=== PATIENT | female | born 1950 | race Caucasian/White ===

== ENCOUNTER 2019-11-20 11:44 | Outpatient (RCR) | payer MEDICARE, SELFPAY | END 2019-11-20 23:59 | disposition home or self-care (01) | LOC: NS 11:44 | PROVIDERS: PCP Student in an Organized Health Care Education/Training Program; Visit Provider Physician Assistant | DX: Z71.3 Dietary counseling and surveillance (principal); E11.9 Type 2 diabetes mellitus without complications; E66.8 Other obesity; Z68.42 Body mass index [BMI] 45.0-49.9, adult | CPT/HCPCS: 97802 ==

== ENCOUNTER 2020-01-07 08:21 | Day surgery (SDC) | payer MEDICARE, SELFPAY ==
[2020-01-07 09:04] VITALS: BP 150/70; PULSE 76; RESP 16; TEMP 36.8; O2SAT 96; BMI 49.9
[2020-01-07] MEDS: Lactated Ringers 1,000 ML 100 ML IV (09:15)
--- NOTE | 2020-01-07 09:15 | RAD_ITS ---
PROCEDURE: Caudal block. DATE OF EXAMINATION: January 07, 2020. INDICATION: Female, 69 years old. Chronic back pain. FLUOROSCOPY TIME (if supplied): (8.9 seconds) minutes/seconds Intraoperative imaging provided for caudal block. RAD/Fluoro Guided Needle Placement IMPRESSION: Intraoperative imaging provided for caudal block. Electronically Signed: Tee Morneo, at 13:25 EDT , Service support ,
[2020-01-07 10:00] LABS: Bedside Glucose 104 mg/dL (70-110)
[2020-01-07] MEDS: Bupivacaine 0.25% 30 ML Vial (10:24)
[2020-01-07] MEDS: MethylPREDNISolone Acetate 80 MG/ML Vial (10:24)
[2020-01-07] MEDS: 0.9% Normal Saline (Pres. free 10 ML Vial (10:24)
--- NOTE | 2020-01-07 10:33 | PCM.OPRPT ---
Report of Operation Date of Procedure: 01/07/20 Description of Surgical Findings:: PREOPERATIVE DIAGNOSIS: Lumbosacral radiculopathy, lumbosacral degenerative disc disease, lumbosacral spinal stenosis POSTOPERATIVE DIAGNOSIS: Lumbosacral radiculopathy, lumbosacral degenerative disc disease, lumbosacral spinal stenosis PROCEDURE PERFORMED: Diagnostic/therapeutic caudal epidural steroid injection. ANESTHESIA: MAC. BLOOD LOSS: Minimal. COMPLICATIONS: None. DESCRIPTION OF PROCEDURE: History and physical of today was reviewed. Risks and benefits of the procedure were explained. The patient understood and agreed to proceed. Informed consent was obtained. IV inserted per routine protocol. The patient was taken to the operating room and placed in the prone position with a pillow positioned underneath the abdomen. The lower back and tailbone area was prepped and draped in a sterile fashion using iodine x3. Under fluoroscopy guidance on a lateral view, the caudal space was identified. The skin and subcutaneous tissue was anesthetized with approximately 3 mL of 1% lidocaine using a 25-gauge regular needle. Under direct visualization with fluoroscopy, using a 22-gauge 3-1/2-inch spinal needle, the needle was advanced via the skin through the sacral hiatus. The tip of the needle was passed through the sacrococcygeal ligament and advanced to approximately S4 area. After negative aspiration of blood or CSF, a total of 3 mL of contrast was injected to confirm correct placement of the needle as well as cephalad spread. The spread was followed to approximately L5 area. After confirmation on AP as well as lateral view and repeated negative aspiration, a total of 15 mL of preservative-free 0.125% Marcaine with 80 mg of Depo-Medrol was injected easily. The needle was then removed intact. The patient experienced no sign or symptoms of intrathecal or intravascular injection. The patient experienced no paresthesia. The procedure was completed without any apparent difficulty or any complications. The patient appeared to tolerate it well. ASSESSMENT AND PLAN: This is a 69-year-old female with lumbosacral radiculopathy, lumbosacral degenerative disc disease, lumbosacral spinal stenosis status post Diagnostic/therapeutic caudal epidural steroid injection, patient will continue her current medications, patient will follow approximately 2 weeks for reevaluation.
[2020-01-07 10:35] VITALS: BP 141/69; BP 150/70; PULSE 78; RESP 18; TEMP 36.5; O2SAT 100
[2020-01-07 10:40] VITALS: BP 150/70; BP 157/77; PULSE 81; RESP 18; O2SAT 100
[2020-01-07 10:45] VITALS: BP 150/70; BP 158/72; PULSE 80; RESP 18; O2SAT 98
[2020-01-07 10:50] VITALS: BP 150/70; BP 168/73; RESP 18; TEMP 36.9; O2SAT 100
[2020-01-07 11:11] VITALS: BP 150/70
== END 2020-01-07 11:27 | disposition home or self-care (01) ==
LOC: SDC 08:24 → AC 08:24
PROVIDERS: PCP Student in an Organized Health Care Education/Training Program; Referring Provider Student in an Organized Health Care Education/Training Program; Visit Provider Anesthesiology Pain Medicine
PROC: 3E0S3BZ Introduction of Anesthetic Agent into Epidural Space, Percutaneous Approach (ICD-10-PCS; CPT 62282; principal; 2020-01-07 09:25)
DX: M51.17 Intervertebral disc disorders with radiculopathy, lumbosacral region (principal); M47.27 Other spondylosis with radiculopathy, lumbosacral region; M46.96 Unspecified inflammatory spondylopathy, lumbar region; M41.86 Other forms of scoliosis, lumbar region; M48.07 Spinal stenosis, lumbosacral region; G89.29 Other chronic pain; E11.9 Type 2 diabetes mellitus without complications; M79.7 Fibromyalgia; J45.909 Unspecified asthma, uncomplicated; M81.0 Age-related osteoporosis without current pathological fracture; G47.33 Obstructive sleep apnea (adult) (pediatric); K21.9 Gastro-esophageal reflux disease without esophagitis; Z79.899 Other long term (current) drug therapy
CPT/HCPCS: 62323; 64483; 77002; 82962; J7120; J3490

== ENCOUNTER → 2020-02-18 09:26 | Outpatient (CLI) | payer MEDICARE, SELFPAY ==
--- NOTE | 2020-02-18 | ASPOS_PTH ---
PATIENT: AUSTIN BARROS LOC: [facility] U#:[id number] AGE/SX: 75/F ROOM: RE02/18/[address]: Dr. Kartik Garrido MD : 1950 BED: DIS: SPEC #: [id number] RECD: 02/18/20 10:41 STATUS: SARAH REVickie #: [id number] MARION: 02/18/20 00:[address]: Kartik Garrido DEPT: CYTOLOGY RECD BY: Raheel Quiñones ENTERED: 02/18/20 10:41 SP TYPE: ASP HERE OTHR DR: Dr. Padmini Rosa MD Tissues: Parotid gland, NOS Procedures: Surgery Specimen Level IV Cytology Other Fine Needle Asp on Site HEADER OPERATION: Fine needle aspiration right parotid mass PRE-OP DIAGNOSIS: Right parotid mass TISSUE SUBMITTED: Right parotid mass DIAGNOSIS CYTOLOGY Fine needle aspiration, right parotid mass (smears and cell block): Consistent with pleomorphic adenoma. AM:efraín 02/19/20 COMMENT The specimen is evaluated at the time of FNA by Dr. Aggarwal. Immediate Evaluation = Mature adipose tissue and benign salivary gland tissue. Case has been reviewed in consultation with Dr. Kirkpatrick who concurs with the above diagnosis. IDC:SJ CYTOLOGY STUDY Slides are reviewed. CYTOLOGY GROSS Received is 0.2 ml of clear yellow material labeled with the patient's name, and designated right parotid. Four imprints and one paps are made from the submitted fluid and the rest is added to CytoLyt for cell block preparation. Submitted for cytology study. / rg 02/18/20 TC:1 CPT: 15856, 36462, 99640, 27506
== END ==
PROVIDERS: PCP Student in an Organized Health Care Education/Training Program; Referring Provider Otolaryngology; Visit Provider Otolaryngology
DX: K11.8 Other diseases of salivary glands (principal)
CPT/HCPCS: 10021; 88161; 88305

== ENCOUNTER 2020-06-09 05:48 | Day surgery (SDC) | payer MEDICARE, SELFPAY ==
--- NOTE | 2020-06-03 10:33 | EKG12_ITS ---
Test Reason : PRE OP Blood Pressure : / mmHG Vent. Rate : 078 BPM Atrial Rate : 078 BPM P-R Int : 142 ms QRS Dur : 082 ms QT Int : 376 ms P-R-T Axes : 068 -02 023 degrees QTc Int : 428 ms Normal sinus rhythm with sinus arrhythmia Nonspecific ST abnormality Abnormal ECG Confirmed by ANAMIKA MONTES, MARIA LUISA ([id number]), website/blog editor YAZ CASEY ([id number]) on 06/04/2020 8:46:18 AM Referred By: Kartik Garrido Confirmed By:MARIA LUISA WILLSON MD
[2020-06-03 11:35] LABS: Hematocrit 42.1 % (37-47); Hemoglobin 12.9 g/dL (12.0-15.0); Mean Corp Hgb Conc 30.6 g/dL (32-36); Mean Corpuscular Hgb 29.2 pg (27.0-32.0); Mean Corpuscular Volume 95.2 fL (81-99); Platelet Count 298 K/mm3 (150-450); RBC Distribution Width CV 14.1 % (11.6-14.6); RBC Distribution Width SD 49.1 fl (35.1-43.9); Red Blood Count 4.42 M/mm3 (4.2-5.4)
[2020-06-03 11:43] LABS: International Normalized Ratio 1.1; Partial Thromboplast Time 30.4 Seconds (24.1-36.2); Prothrombin Time (Protime)PT. 13.4 SECONDS (11.7-14.9)
[2020-06-03 11:52] LABS: Hemoglobin A1c 6.2 % (3.8-5.6)
[2020-06-03 12:07] LABS: Anion Gap 4 (5-15); BUN 14 mg/dL (7-18); BUN/Creat Ratio 20.4 RATIO (10-20); Calcium,Total 9.5 mg/dL (8.5-10.1); Chloride 104 mmol/L (98-107); Creatinine, Serum 0.69 mg/dL (0.55-1.02); EST Glomerular Filtration Rate 90 mL/min (>60); Est Glom Filt Rate - Afr Amer 109 mL/min (>60); Glucose 100 mg/dL (74-106); Potassium 4.1 mmol/L (3.5-5.1); Sodium Level 139 mmol/L (136-145)
[2020-06-09] VITALS (9 sets, daily range): BP systolic 131–188; BP diastolic 63–91; PULSE 80–94; RESP 16–18; TEMP 36.1–36.7; O2SAT 92–100; BMI 49.3
--- NOTE | 2020-06-09 | PAR_PTH ---
PATIENT: AUSTIN BARROS LOC: [facility] [place] U#:[id number] AGE/SX: 70/F ROOM: RE06/09/[address]: Dr. Kartik Garrido MD : 1950 BED: DIS: 06/09/2020 SPEC #: [id number] RECD: 06/09/20 13:36 STATUS: SARAH MOLLY #: [id number] MARION: 06/09/20 00:[address]: Kartik Garrido DEPT: SURGICAL PATHOLOGY RECD BY: Vaughn Rey ENTERED: 06/09/20 13:36 SP TYPE: PAROTID OTHR DR: Dr. Padmini Rosa MD Tissues: Parotid gland, NOS Procedures: Surgery Specimen Level V HEADER OPERATION: Superficial parotidectomy, superficial muscular aponeurotic PRE-OP DIAGNOSIS: Right parotid mass TISSUE SUBMITTED: Right parotid mass MICROSCOPIC DIAGNOSIS Right parotid mass, parotidectomy: Pleomorphic adenoma. One benign lymph node. See comment. AM:efraín 06/11/20 COMMENT The lesion appears to have been completely excised in the planes examined. Reference is made to the patient's fine needle aspiration ([id number]) in which changes consistent pleomorphic adenoma were identified. MICROSCOPIC DESCRIPTION Slides are reviewed. GROSS DESCRIPTION Received in fixative is one container labeled with the patient's name and designated parotid mass. The specimen consists of an irregular fragment of light hoover, rubbery tissue measuring 2.5 x 2 x 1.5 cm and weighing 3.4 gm. The specimen is inked and serially sectioned to reveal a hoover-white tissue measuring 1 cm in diameter. The lesion is surrounded by rubbery tissue and does not appear to extend to the inked surfaces. The specimen is totally submitted in four cassettes. / AM:efraín 06/10/20 TC:1 CPT: 30757
[2020-06-09 06:31] LABS: Bedside Glucose 117 mg/dL (70-110)
--- NOTE | 2020-06-09 07:27 | DCINST_ITS ---
You will use the following diet at home:: Regular Discharge Activity: No Restrictions Additional Activity Instructions:: Empty and record drain output every 12 hours. Keep facial incision dry until the drain is removed. Keep abdominal binder on. Allergies/Adverse Reactions: Allergies methocarbamol Allergy (Verified 06/09/20 06:12) NEEDS FOLLOW-UP tramadol Allergy (Verified 06/09/20 06:08) Anaphylaxis Medications to take at Discharge Calcium Carbonate [Calcium] 600 mg PO DAILY 01/03/20 Cholecalciferol (VIT D3) [Vitamin D] 1,000 unit PO DAILY 01/03/20 RX: Omeprazole 40 mg PO DAILY 01/03/20 Celecoxib [Celebrex] 200 mg PO DAILY 06/02/20 Cyanocobalamin [Vitamin B12] 1,000 mcg PO DAILY@0800 06/02/20 Dimenhydrinate [Dramamine] 25 mg PO PRN PRN 06/02/20 Diphenhydramine HCl [Benadryl Allergy] 25 mg PO BID 06/02/20 Primary Care Physician: Padmini Rosa MD [Primary Care Provider] - Test Results: Test results from this visit will be discussed in further detail at your follow- up appointment, if applicable.
[2020-06-09] MEDS: Mupirocin Ointment 22gm Tube 1 APPLIC (12:17)
--- NOTE | 2020-06-09 12:38 | PCM.OPRPT ---
Report of Operation Date of Procedure: 06/09/20 Pre-Operative Diagnosis: right parotid neoplasm Post-Operative Diagnosis: same Surgery/Procedure Performed:: Right superficial parotidectomy with facial nerve dissection and preservation. SMAS flap and fat graft. Description of Surgical Findings:: anterior superior tumor Type of Anesthesia:: General Anesthesiologist: Brad Aguilar Specimen's removed: parotid Drains: 1 BECKY and 1 volodymyr (abdomen) Estimated Blood Loss (mL): minimal Description of Procedure: The patient was taken to the operating room on 06/09/2020. Shee was placed in supine position on the operating table. She was given sufficient general endotracheal anesthesia. The Nim facial monitor was attached to the patient and it's functionality was confirmed. The right eitan-face and neck were prepped and draped sterilely. A modified Adarsh incision was made with a 15 blade. This was carried down through the skin. Hemostasis was achieved with bipolar cautery. Next the SMAS flap was dissected by Dr. Crowell. Please see his dictation for a more detailed description of this procedure. Once the SMAS flap was elevated and rotated, left superficial parotidectomy was undertaken. The parotid was from the sternocleidomastoid muscle inferiorly. The parotid was then dissected off of the mastoid tip. The tragal pointer was identified and a trough was formed from the tragal pointer to the mastoid tip using sharp and blunt dissection. Next, careful dissection was carried out to identify the main trunk of the facial nerve. Once this was identified it was confirmed with the facial nerve monitor. The superficial lobe of the parotid was then dissected lateral to the main trunk of the facial nerve. In this way, dissection was carried out anteriorly until the pes anserinus was identified. We then dissected the superior branch of the facial nerve. In doing so the superficial lobe of the parotid was dissected free from the facial nerve. Specifically, tissue was removed from the nerve and then bipolar cautery was carried out followed by incising with scissors or a scalpel. In this way, the frontal, temporal and zygomatic branch and buccal branch were identified and preserved. Next, the inferior division of the facial nerve was dissected using blunt dissection. Again the superficial lobe was removed using bipolar cautery and sharp incision. Next the remaining tumor and gland was dissected free using sharp dissection and sent for permanent section. I then copiously irrigated the wound with saline. Hemostasis was achieved with bipolar cautery. The superior and inferior division of the facial nerve were then tested with the facial nerve monitor and there was clear movement of all parts of the face as well as tracings on the NIM monitor. At this point Dr. Crowell performed his portion of the procedure and this is dictated in a separate operative note. Once his procedure was completed a drain was placed through a separate stab incision. This was placed lateral to the fat graft and the SMAS flap. The skin was closed with 4-0 Vicryl as well as 6-0 fast-absorbing gut. Bactroban was then applied. The patient was then awoken and brought to recovery room in stable condition blood loss minimal, replacement none. Sponge, needle, instrument count were correct at the end of the procedure.
[2020-06-09 13:41] LABS: Bedside Glucose 126 mg/dL (70-110)
[2020-06-09] MEDS: HYDROcodone Bitartrate/Apap 5/325 Tablet PO (14:29)
--- NOTE | 2020-06-23 08:12 | OP.PCM_ITS ---
Problem List (1) Benign neoplasm parotid gland Status: Chronic Report of Operation Date of Procedure: 06/09/20 Pre-Operative Diagnosis: 1. post-parotidectomy defect, right preauricular area Post-Operative Diagnosis: 1. post-parotidectomy defect, right preauricular area Surgery/Procedure Performed:: 1. superficial musculoaponeurotic system flap, right. 2. abdominal fat graft Type of Anesthesia:: General Description of Procedure: on the day of the procedure, after appropriate informed consent was obtained, the patient was brought to the operating room and placed in supine position on the operating table. she was placed under general endotracheal anesthesia by the anesthesiologist. the endotracheal tube was secured, the eyes were taped. facial nerve electrodes were placed on the right side. the preauricular area was injected with lidocaine/epinephrine. a right modified jaun incision was made with a 15 blade. the preauricular area was dissected 4cm anterior in the subcutaneous fat plane. a 15 blade was used to incise the superficial musculoaponeurotic system and the parotid-masseteric fascia was identified. the superficial musculoaponeurotic system flap was dissected and developed using a metzenbaum scissor. this traversed into the platysma inferiorly. the flap was preserved. at this point, a right superficial parotidectomy was performed. please see the operative report for full details. the left lower abdominal quadrant was prepped and injected with lidocaine/epinephrine in a 4cm area. a 3cm incision was made in the skin of the left lower quadrant in a transverse fashion with a 15 blade. the subcutaneous fat was dissected and a 3cm x 3cm abdominal fat graft was taken. the incision was irrigated and closed with 4-0 vicryl and 4-0 maxon. a volodymyr was placed before closing. the fat graft was trimmed accordingly and placed into the parotidectomy defect: it was sutured into place at multiple points for security. the superficial musculoaponeurotic system flap was used to cover the fat graft; this was sutured into place with 4- 0 vicryl. a 15 eritrean BECKY drain was inserted lateral to the flap and sutured into place. the jaun incision was closed with 4-0 vicryl and 5-0 nylon. the patient was awoken from anesthesia and transferred to the PACU in stable condition.
== END 2020-06-09 15:22 | disposition home or self-care (01) ==
LOC: SDC 05:49 → AC 05:49
PROVIDERS: Anesthesiology; PCP Student in an Organized Health Care Education/Training Program; Referring Provider Otolaryngology; Visit Provider Otolaryngology
PROC: (CPT 15829; principal; 2020-06-09 07:00)
DX: D11.0 Benign neoplasm of parotid gland (principal); Z11.59 Encounter for screening for other viral diseases; E11.9 Type 2 diabetes mellitus without complications; J45.909 Unspecified asthma, uncomplicated; K21.9 Gastro-esophageal reflux disease without esophagitis; Z78.0 Asymptomatic menopausal state; Z79.899 Other long term (current) drug therapy
CPT/HCPCS: 15829; 42415; 36415; 80048; 82962; 83036; 85027; 85610; 85730; 87635; 88305; 88307; 93005; C9803; J7120; C1729; J2405; U0003

== ENCOUNTER 2021-10-30 10:27 | Day surgery (SDC) | payer MEDICARE, SELFPAY ==
[2021-10-30] VITALS (7 sets, daily range): BP systolic 113–157; BP diastolic 49–86; PULSE 73–79; RESP 16; TEMP 36.4–37.1; O2SAT 96–100; BMI 48.5
--- NOTE | 2021-10-30 | TEM_PTH ---
PATIENT: AUSTIN BARROS LOC: [facility] [place] U#:[id number] AGE/SX: 71/F ROOM: RE10/30/[address]: Dr. Julio Cesar Ge MD : 1950 BED: DIS: 10/30/2021 SPEC #: [id number] RECD: 10/30/21 13:03 STATUS: SARAH DASVickie #: [id number] MARION: 10/30/21 00:[address]: Julio Cesar Ge DEPT: SURGICAL PATHOLOGY RECD BY: Vaughn Rey ENTERED: 11/02/21 08:43 SP TYPE: TEMPORAL OTHR DR: Dr. 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 No evidence of arteritis. See comment. AM:efraín 11/03/2021 COMMENT Elastin stain with matched control supports the above diagnosis. MICROSCOPIC DESCRIPTION Slides are reviewed. GROSS DESCRIPTION Received in fixative is one container labeled with the patient's name and designated right temporal artery. The specimen consists of a tubular piece of hoover soft tissue measuring 2.5 cm in length and 0.1 cm in diameter. The specimen is totally submitted in one cassette. / AM:efraín 11/02/2021 TC:5 CPT: 13986, 14343
[2021-10-30] MEDS: Lactated Ringers 1,000 ML 15 ML IV (11:20)
[2021-10-30 11:26] LABS: Bedside Glucose 128 mg/dL (70-110)
--- NOTE | 2021-10-30 12:10 | HP.PCM_ITS ---
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: No Is patient in pain?: No Allergies methocarbamol Allergy (Verified 10/27/21 13:58) NEEDS FOLLOW-UP tramadol Allergy (Verified 10/27/21 13:58) Anaphylaxis Medications calcium carbonate 600 mg PO DAILY 01/03/20 [History Confirmed 10/27/21] cholecalciferol (vitamin D3) 1,000 unit PO DAILY 01/03/20 [History Confirmed 10/27/21] omeprazole 40 mg PO DAILY 01/03/20 [History Confirmed 10/27/21] celecoxib 200 mg PO DAILY 06/02/20 [History Confirmed 10/27/21] cyanocobalamin (vitamin B-12) 1,000 mcg PO DAILY@0800 06/02/20 [History Confirmed 10/27/21] dimenhydrinate 25 mg PO PRN PRN 06/02/20 [History Confirmed 10/27/21] diphenhydramine HCl 25 mg PO BID 06/02/20 [History Confirmed 10/27/21] Is last menstrual period known: No Post menopausal: Yes Patient : No PFSH Medical History (Updated 10/27/21 @ 14:[address] Julio Cesar Ge MD) Asthma Back pain Diabetes History of anemia MGUS (monoclonal gammopathy of unknown significance) Rheumatoid arthritis Sleep apnea Surgical History (Updated 10/27/21 @ 14:24 by Racquel Vargas) History of cardiac catheterization History of cholecystectomy History of dilation and curettage History of tonsillectomy History of total hysterectomy Family History (Updated 10/27/21 @ 14:25 by Racquel Vargas) Son Diabetes Mother Asthma Rheumatoid arthritis Alzheimer disease Social History Smoking Status: Never smoker HPI HPI HPI: AUSTIN BARROS, is a 71 F who presents to the office today for right temporal artery biopsy. The patient experienced facial drooping and vision changes on the right which improved on steroids. She had a work-up for stroke which was negative. She was sent here for temporal artery biopsy of the right side. ROS General General: No weight change or fatigue HEENT HEENT: No difficulty swallowing Additional Details: Vision changes of the right eye Endo Endocrine: No thyroid disease Musc Musculoskeletal: No back problems or arthritis Cardio Cardiovascular: No pacemaker, heart disease, atrial fibrillation, high blood pressure, heart attack, heart stent, palpitations or chest pain Psych Psychiatric: No depression or anxiety Resp Respiratory: No shortness of breath, No cough, No COPD, No asthma and No emphysema Gastro Gastrointestinal: No abdominal pain, No nausea or vomiting, No diarrhea, No constipation, No blood in stool, No acid reflux, No hemorrhoids, No ulcers, No gallbladder problem and No black,tarry stools Frank Hematologic: No blood thinners Exam Const General: cooperative Orientation: alert and oriented x3 HENMT Head: normal to inspection Neck Neck: normal visual inspection and full ROM Chest Chest palpation & inspection: normal inspection of the chest Resp Effort & Inspection: normal respiratory effort Auscultation: clear to auscultation bilaterally Cardio Rate: regular rate Rhythm: regular rhythm GI Inspection: non-distended Palpation: soft and nontender Skin General: no rashes or lesions noted Neuro General: patient alert and patient oriented x3 Extrem General: full ROM Psych Appearance: grossly normal Mental Status: mental status grossly normal Assessment and Plan Assessment and Plan (1) Temporal headache: Status: Acute Plan - Dr. Julio Cesar Ge MD: Patient had temporal headaches and facial drooping and vision changes in the right eye which did slightly improve with steroids. Patient was sent here for temporal artery biopsy. I discussed right temporal artery biopsy with the patient in detail. I discussed the risks including wound to bleeding, infection, injury to facial nerve. Patient understands the risks and is willing to proceed. Julio Cesar Ge MD Pager: [facility] [address] [place] [address], [address] [place] [address] Office: I have re-examined the patient. There are no clinical changes since date of exam.
[2021-10-30] MEDS: Lidocaine 1% (20 ml mdv) 20 ML Vial (13:00)
--- NOTE | 2021-10-30 13:06 | OP.PCM_ITS ---
Problems Associated Problem List Diagnoses (1) Temporal headache: Report of Operation Date of Procedure: 10/30/21 Pre-Operative Diagnosis: Temporal headaches on the right Post-Operative Diagnosis: Same Surgery/Procedure Performed:: Right temporal artery biopsy Specimen's removed: Right temporal artery Description of Procedure: Patient was brought back to the operating room and MAC anesthesia was induced. The hair on the right episcopalian was clipped and then the right side of the face was prepped. Ultrasound was used to trace the temporal artery. Next the right episcopalian was draped and prepped again and then the scalp was used to make an incision over the jordana. Electrocautery was used to maintain hemostasis. The sharp dissection was then carried downward until the artery was identified and it was clipped and tied proximally and distally and dissected from its branches. It was then removed and the cavity was irrigated and then dried. The cavity was closed using 4-0 Monocryl suture and then glue was applied. Patient tolerated the procedure well was brought to PACU. Admit VTE Documentation VTE Mechan Device Prophylaxis: SCD's
--- NOTE | 2021-10-30 13:27 | EX.PCM.DISCH ---
Discharge Instructions Procedure General Surgery Diet Discharge Diet: Light diet - advance as tolerated Activity Discharge Activity: May Not Drive (No driving for 1 week or while taking narcotic pain meds.) May shower in (days): 1 Lifting Restrictions: 10 pounds for 3 days Dressing / Incision Call your doctor if your incision/area has: Continuous Slow Oozing, Sudden Increased Bleeding, Increased Pain/ Swelling, Increased Redness, Foul Smelling Discharge and Swelling at the incision site Suture Line Care: Avoid Pulling/Pushing and Avoid Pinching/Bending Cleanse incision/area with: Soap & Water Additional Dressing/Incision Instructions:: Tylenol and Ibuprofen for discomfort Follow Up Care Please Follow Up With: Julio Cesar Ge MD When: As needed [phone], we will forward pathology to your doctor and notify you when it arrives Test Results: Test results from this visit will be discussed in further detail at your follow-up appointment, if applicable. Discharge Plan Admission Attending Provider: Julio Cesar Ge Primary Care Provider: Padmini Rosa Discharge Orders/Prescriptions Prescriptions: Continued calcium carbonate 600 MG tablet 600 mg PO DAILY RF: 0 cholecalciferol (vitamin D3) 1,000 UNIT tablet 1,000 unit PO DAILY RF: 0 omeprazole 40 MG capsule,delayed release(DR/EC) 20 mg PO DAILY RF: 0 cyanocobalamin (vitamin B-12) 500 MCG tablet 1,000 mcg PO DAILY@0800 RF: 0 diphenhydramine HCl 25 MG tablet 25 mg PO BID RF: 0 dimenhydrinate 25 MG tablet,chewable 25 mg PO PRN PRN (Reason: Vertigo) RF: 0 magnesium 250 mg Tablet 250 mg PO DAILY RF: 0 hydroxychloroquine 200 mg tablet 200 mg PO BID RF: 0 omega-3 fatty acids Capsule 1,000 mg PO DAILY RF: 0 duloxetine 30 mg capsule,delayed release(DR/EC) 60 mg PO DAILY RF: 0 Ozempic 0.25 mg or 0.5 mg(2 mg/1.5 mL) pen injector 0.5 mg SUBCUT WE RF: 0 albuterol sulfate [Ventolin HFA] 90 mcg/actuation Hfa Aerosol Inhaler 2 puff INHALATION Q6H PRN (Reason: ASTHMA) RF: 0 prednisone 20 mg tablet 20 mg PO TID RF: 0 Referrals / Follow Up: Padmini Rosa MD [Primary Care Provider] - Disposition Disposition (needs filled in before D/C Order can be placed): Home, Self Care
== END 2021-10-30 23:59 | disposition home or self-care (01) ==
LOC: SDC 10:29 → AC 10:42
PROVIDERS: PCP Student in an Organized Health Care Education/Training Program; Visit Provider Surgery
PROC: (CPT 37609; principal; 2021-10-30 12:10)
DX: R51.9 Headache, unspecified (principal); M06.9 Rheumatoid arthritis, unspecified; E11.9 Type 2 diabetes mellitus without complications; R29.810 Facial weakness; D47.2 Monoclonal gammopathy; K76.0 Fatty (change of) liver, not elsewhere classified; E07.9 Disorder of thyroid, unspecified; K21.9 Gastro-esophageal reflux disease without esophagitis; J45.909 Unspecified asthma, uncomplicated; G47.30 Sleep apnea, unspecified; Z78.0 Asymptomatic menopausal state; Z79.52 Long term (current) use of systemic steroids; Z79.899 Other long term (current) drug therapy
CPT/HCPCS: 37609; 00352; 82962; 88305; 88313; J7120; J2405

== ENCOUNTER → 2025-06-07 | Outpatient (CLI) | payer MEDICARE, SELFPAY ==
[2025-06-07 15:35] LABS: AST(SGOT) 21 U/L (<=31); Alanine Aminotransfer ALT/SGPT 21 U/L (<=34); Albumin, Serum 4.2 g/dL (3.4-4.8); Alkaline Phosphatase 50 U/L (35-104); Anion Gap 12 (5-15); BUN 17 mg/dL (4-19); BUN/Creat Ratio 25.7 RATIO (10-20); Calcium,Total 9.4 mg/dL (7.6-11.0); Carbon Dioxide 26.7 mmol/L (21.0-32.0); Chloride 102 mmol/L (98-108); Globulin 2.1 g/dL (2.2-4.2); Glucose 104 mg/dL (70-99); Potassium 4.8 mmol/L (3.3-5.1)
[2025-06-07 15:40] LABS: CRP < 3.00 mg/L (0.0-3.0)
[2025-06-07 16:11] LABS: Hematocrit 41.1 % (37-47); Hemoglobin 12.7 g/dL (12.0-15.0); Immature Granulocytes Count 0.010 X10^3/uL (0.0-0.0); Mean Corp Hgb Conc 30.9 g/dL (32-36); Mean Corpuscular Volume 98.1 fL (81-99); Mean Platelet Vol. 11.7 fl (6.2-12.0); NRBC Flagged by Analyzer 0 % (0-5); Platelet Count 232 K/mm3 (150-450); RBC Distribution Width CV 14.9 % (11.6-14.6); RBC Distribution Width SD 53.4 fl (35.1-43.9); Red Blood Count 4.19 M/mm3 (4.2-5.4); White Blood Count 4.3 K/mm3 (4.4-11.0)
== END | disposition home or self-care (01) ==
LOC: MTLAB 11:09
PROVIDERS: PCP Student in an Organized Health Care Education/Training Program; Referring Provider Internal Medicine Rheumatology; Visit Provider Internal Medicine Rheumatology
DX: M31.6 Other giant cell arteritis (principal); M06.4 Inflammatory polyarthropathy; M79.7 Fibromyalgia; Z79.899 Other long term (current) drug therapy
CPT/HCPCS: 36415; 80053; 85025; 85652; 86140